=== PATIENT | female | born 2000 | race Caucasian/White ===

== ENCOUNTER → 2023-08-01 09:49 | Outpatient (BNV) | payer OTHER, SELFPAY ==
--- NOTE | 2023-08-01 09:49 | MHC.OFFVIS ---
Intake Intake Visit Reasons: Amb Documentation HPI HPI Comments History of Present Illness Details student here for orientation she has good relationship w/ pcp at [facility] and gets mis specialist care there as well depo for control PMH:asthma - bad - often in ER. last exacerbation was a few weeks ago hosp for 2 days. regularly on prednisone, but routine meds are proair, advair (250),singular. carries proair w/ her. not w/ babies father anymore. she was living w/ mother (good relationship) but was constantly in ER because the other tenants in building were smoking cig/marijuana and she couldn't stay well. so she is in retirement at [employer] - w/ 2 kid. doing well there but it's only been a week. no current partner but she will stay on depo fmh: positive for asthma only no etoh,no cig, no drugs -never had any interest she just wants to take care of her life and body mood: anxious but not a big issue - had a therapist but didn't find her very helpful and has no interst in starting again though she is not opposed to the idea [facility] Medical History (Updated 08/01/23 @ 10:05 by KIET Zhu) Living in retirement On Depo-Provera for contraception Asthma, moderate persistent Family History (Updated 08/01/23 @ 10:07 by KIET Zhu) Mother No problems noted. Father Asthma Heart attack Sister No problems noted. Brother Asthma Brother No problems noted. Daughter Asthma Son No problems noted. Female Reproductive History Menstrual control method: progesterone injection Review of Systems Const Details: Counseling visit: All systems reviewed & are unremarkable except as noted in HPI and below Reports as per HPI Resp Reports as per HPI GI Reports as per HPI Musc Reports as per HPI Neuro Reports as per HPI Psych Reports as per HPI Physical Exam Const General: cooperative, healthy appearing and no acute distress Nutritional Appearance: well nourished Orientation/consciousness: oriented to person Limitations: no limitations HEENT Other: wnl Eyes Other: wnl Chest Other: easy breathing Resp Effort & Inspection: able to speak in complete sentences Skin Other: normal in appearance Neuro General: oriented to person Psych Other: see HPI Mental Status: mental status grossly normal Speech and movement: Clear speech present Attitude: cooperative Thought process: Normal thought process present Assessment & Plan Assessment & Plan (1) On Depo-Provera for contraception: Code(s): Z30.42 - Encounter for surveillance of injectable contraceptive (2) control counseling: Code(s): Z30.09 - Encounter for other general counseling and advice on contraception (3) Asthma, moderate persistent: Code(s): J45.40 - Moderate persistent asthma, uncomplicated (4) Living in retirement: Code(s): Z59.01 - Sheltered homelessness Plan teaching done, phq 9 and Craft[employer] reviewed, coord care w/ counselor ronnie saucedo Quality Reporting (2019) Adult ([facility] 138/2//69) Smoking risk assessment performed?: Yes Pediatric ([facility] 2/146/155/74) Depression screening performed: Yes Depression/Bipolar (159/160/161/177) Depression questionnaire - teen: 4 (client assessed - supports in place, not suicidal) Suicide risk assessment performed: Yes Psychotherapy: No Coding Level of Care Code New Pt Level 4 (11224) Diagnoses On Depo-Provera for contraception Z30.42 control counseling Z30.09 Asthma, moderate persistent J45.40 Living in retirement Z59.01 Time Spent (min) 30 Comment counseling/ coord care and supports
== END ==
PROVIDERS: Visit Provider Nurse Practitioner Family
DX: Z30.42 Encounter for surveillance of injectable contraceptive (principal); Z30.09 Encounter for other general counseling and advice on contraception; J45.40 Moderate persistent asthma, uncomplicated; Z59.01 Sheltered homelessness
CPT/HCPCS: 99204

== ENCOUNTER → 2023-12-20 10:33 | Outpatient (BNV) | payer OTHER, SELFPAY ==
--- NOTE | 2023-12-20 10:33 | A.OFFVIS_ITS ---
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 but no period and she would like another preg test. long covnersation about her fears about infertility. she would be ok if she were pregannt. would like to get started on the patch and avoid but IF she is preg it would be ok. she has 2 children 2 years apart - got preg immediately after stopping depo.. Her hcg is faint positive (declines bhcg), she is in tears she's so happy - called b/f and he's happy too. COUNTS INCLUDE 234 BEDS AT THE [facility] Medical History Living in retirement On Depo-Provera for contraception Asthma, moderate persistent Family History Mother No problems noted. Father Asthma Heart attack Sister No problems noted. Brother Asthma Brother No problems noted. Daughter Asthma Son No problems noted. Review of Systems Const Details: Counseling visit: All systems reviewed & are unremarkable except as noted in HPI and below Reports as per HPI Resp Reports as per HPI GI Reports as per HPI Musc Reports as per HPI Neuro Reports as per HPI Psych Reports as per HPI Physical Exam Const General: cooperative, healthy appearing and no acute distress Nutritional Appearance: well nourished Orientation/consciousness: oriented to person Limitations: no limitations HEENT Other: wnl Eyes Other: wnl Chest Other: easy breathing Resp Effort & Inspection: able to speak in complete sentences Skin Other: normal in appearance Neuro General: oriented to person Psych Other: see HPI Mental Status: mental status grossly normal Speech and movement: Clear speech present Attitude: cooperative Thought process: Normal thought process present Assessment & Plan Assessment & Plan (1) control counseling: Code(s): Z30.09 - Encounter for other general counseling and advice on contraception (2) Irregular menses: Code(s): N92.6 - Irregular menstruation, unspecified (3) : Comment: just diagnosed Code(s): Z34.90 - Encounter for supervision of normal , unspecified, unspecified trimester Plan plan. counseling done - before diagnosis of and after - she is happy -she will seek care at [facility] w/ onsite counselor Orders: Orders AMB HCG Urine Test Today N92.6 - Irregular menstruation, unspecified, Z32.01 - Encounter for test, result positive Quality Reporting (2019) Adult ([facility] ) Smoking risk assessment performed?: Yes Coding Level of Care Code Est Pt Level 4 (65042) Diagnoses control counseling Z30.09 Irregular menses N92.6 Z34.90 Time Spent (min) 30 Comment counseling and coordinating care w onsite support counselor
== END ==
PROVIDERS: Visit Provider Nurse Practitioner Family
DX: Z30.09 Encounter for other general counseling and advice on contraception (principal); N92.6 Irregular menstruation, unspecified; Z34.90 Encounter for supervision of normal pregnancy, unspecified, unspecified trimester
CPT/HCPCS: 99214

== ENCOUNTER → 2024-01-16 10:48 | Outpatient (BNV) | payer OTHER, SELFPAY ==
--- NOTE | 2024-01-16 10:48 | MHC.OFFVIS ---
Intake Intake Visit Reasons: Amb Documentation Allergies latex Allergy (Intermediate, Verified 12/20/23 10:36) Rash HPI HPI Comments History of Present Illness Details check in - 1) is going well. no concerns other than nausea - she has been given b6 and unisom (justpicked this up so she hasn't tried it yet - but is intereted as she has trouble sleeping so hoping it will help both issues). she thinks she has appt w/ ww today and will ask about ondansatron as well 2) phq9 - she doesnt appear to someone with a severe depression -she manages to get to school and participate and has a social life and connections here - so we reviewed the issues that she checked- she used to be an overeater and now feels less interest in food, she has always had trouble sleeping but doenst feel that this is from perseveration nor depression. she doesnt actually feel depression - she feels that she has bad days and better days. [facility] Medical History (Updated 01/16/24 @ 10:58 by KIET Zhu) Mild depression Living in detention On Depo-Provera for contraception Asthma, moderate persistent Family History Mother No problems noted. Father Asthma Heart attack Sister No problems noted. Brother Asthma Brother No problems noted. Daughter Asthma Son No problems noted. Questionnaire PHQ-9 Over the last 2 weeks, how often have you been bothered by any of the following problems? 1. Little interest or pleasure in doing things: several days 2. Feeling down, depressed, or hopeless: not at all 3. Trouble falling or staying asleep, or sleeping too much: nearly every day (generalized insomnia - no mood associated w. it) 4. Feeling tired or having little energy: several days (/parenting) 5. Poor appetite or overeating: more than half the days ( - nausea) 6. Feeling bad about yourself - or that you are a failure or have let yourself or your family down: several days 7. Trouble concentrating on things, such as reading the newspaper or watching television: more than half the days 8. Moving or speaking so slowly that other people could have noticed. Or the opposite - being so fidgety or restless that you have been moving around a lot more than usual: several days 9. Thoughts that you would be better off or of hurting yourself in some way: not at all Total score: 11 Depression Screening Interpretation: Positive (mild depression - she doesnt experience mood issues as a problem - we will monitor) Depression Screening Follow-up: Other (routine screen done q 3 months - we will follow her) Depression Screening Done: Yes 95609 - PHQ-9 Billing: Yes Source: Developed by Drs. Kaushik Sterling, Debbie Dominugez, Alejandro Tarango and colleagues, with an educational drew from [employer]. CRAFFT Screening Tool PART A: In the PAST 12 MONTHS, did you: Drink any alcohol (more than few sips)? (Do not count sips of alcohol taken during family or christianity events.): No Smoke any marijuana or hashish?: No Use anything else to get high? (includes illegal drugs, over the counter/prescription drugs, or things that you sniff/singh?): No PART B: If answered YES to ANY above: Have you ever been in a CAR driven by someone (including yourself) who was high or had been using alcohol or drugs?: No Do you ever use alcohol or drugs to RELAX, feel better about yourself, or fit in?: No Do you ever use alcohol or drugs while you are by yourself, or ALONE?: No Do you ever FORGET things while using alcohol or drugs?: No Do your FAMILY or FRIENDS ever tell you that you should cut down on your drinking or drug use?: No Have you ever gotten into TROUBLE while you were using alcohol or drugs?: No CRAFFT Assessment Charge Crafft: MATIAS [id number] Review of Systems Const Details: Counseling visit: All systems reviewed & are unremarkable except as noted in HPI and below Reports as per HPI Resp Reports as per HPI GI Reports as per HPI Musc Reports as per HPI Neuro Reports as per HPI Psych Reports as per HPI Physical Exam Const General: cooperative, healthy appearing and no acute distress Nutritional Appearance: well nourished Orientation/consciousness: oriented to person Limitations: no limitations HEENT Other: wnl Eyes Other: wnl Chest Other: easy breathing Resp Effort & Inspection: able to speak in complete sentences Skin Other: normal in appearance Neuro General: oriented to person Psych Other: see HPI Mental Status: mental status grossly normal Speech and movement: Clear speech present Attitude: cooperative Thought process: Normal thought process present Assessment & Plan Assessment & Plan (1) : Comment: incidental Code(s): Z34.90 - Encounter for supervision of normal , unspecified, unspecified trimester (2) Nausea and vomiting during : Code(s): O21.9 - Vomiting of , unspecified (3) Mild depression: Code(s): F32.A - Depression, unspecified (4) Living in detention: Code(s): Z59.01 - Sheltered homelessness (5) Counseling and coordination of care: Code(s): Z71.89 - Other specified counseling Plan student will be monitored on ongoing basis to screen for changes in mood. support given and care coordination w/ onsite counselors Quality Reporting (2019) Adult ([facility] 138//69) Smoking risk assessment performed?: Yes Depression/Bipolar (159/160/161/177) PHQ-9: Total score: 11 Coding Level of Care Code Est Pt Level 4 (73423) Diagnoses Z34.90 Nausea and vomiting during O21.9 Mild depression F32.A Living in detention Z59.01 Counseling and coordination of care Z71.89 Additional Codes CRAFFT Assessment Charge - Matias: MATIAS [id number] ([id number]) Time Spent (min) 30 Comment screening and counseling and coord care w/ onsite staff
== END ==
PROVIDERS: Visit Provider Nurse Practitioner Family
DX: F32.A Depression, unspecified (principal); Z59.01 Sheltered homelessness; Z71.89 Other specified counseling; Z13.30 Encounter for screening examination for mental health and behavioral disorders, unspecified; Z34.90 Encounter for supervision of normal pregnancy, unspecified, unspecified trimester; O21.9 Vomiting of pregnancy, unspecified
CPT/HCPCS: 96160; 99214